=== PATIENT | female | born 1990 | race Caucasian/White ===

== ENCOUNTER 2016-10-06 20:39 | Emergency (ER) | payer OTHER ==
--- NOTE | 2016-10-06 21:19 | ER NURSING DOCUMENTATION ---
Nurse's Notes [facility] Name:Crystal Combest Age:26 yrs Sex:Female :1990 Arrival Date:10/06/2016 Time:20:39 Bed1 Private MD: Diagnosis:Rash Presentation: 10/06 20:50 Presenting complaint: Patient states: rash for 3 days to legs, arms, back. c/o itching lb and pain started today. Transition of care: Home. Onset: The symptoms/episode began/occurred 3 day(s) ago. Anaphylaxis evaluation, no signs or symptoms of anaphylaxis were noted. Notified ED Physician of Dr. Patel notified. 20:50 Acuity: DEL 4 lb 20:50 Method Of Arrival: Walk In lb Triage Assessment: 20:54 General: Appears in no apparent distress, Behavior is cooperative, pleasant. Pain: lb Complains of pain in back of neck. Historical: - Allergies: Pertussis Vaccines; - Home Meds: 1. ortho tricyclen - PMHx: None; - PSHx: Tonsillectomy; SHOULDER SURGERY; eye; - Tetanus: < 10 years. - Ebola Screening: : Patient denies exposure to infectious person. Patient denies travel to an Ebola-affected area in the 21 days before illness onset. . - Immunization history: Flu Vaccine < 1 year. - Social history: Smoking status: Patient states was never smoker of tobacco. Patient uses alcohol but reports only rare drinking. Screenin:55 Infectious Disease Risk None. Abuse screen: Denies threats or abuse. Denies injuries lb from another. Nutritional screening: No deficits noted. Assessment: 20:55 See Triage Assessment done by same RN. Respiratory: Airway is patent Trachea midline lb Respiratory effort is even, unlabored, Breath sounds are clear bilaterally. Vital Signs: 20:54 BP 118 / 72; Pulse 98; Resp 16; Temp 98.2(O); Pulse Ox 97% on R/A; Weight 68.04 kg; lb Height 5 ft. 4 in. (162.56 cm); Pain 3/10; 20:54 Body Mass Index 25.75 (68.04 kg, 162.56 cm) lb ED Course: 20:41 Patient arrived in ED. em3 20:50 Dominga Delgadillo is Primary Nurse. lb 20:52 Triage completed. lb 20:55 Valuables Remains with patient. lb 21:09 Pastor Patel MD is Attending Physician. cd Administered Medications: No medications were administered Outcome: 21: Discharge ordered by . maty 21:18 Discharged to home ambulatory. lb 21:18 Condition: good 21:18 Discharge Assessment: Patient awake, alert and oriented x 3. No cognitive and/or functional deficits noted. Patient verbalized understanding of disposition instructions. 21:18 Instructed on discharge instructions, follow up and referral plans. 21:18 Patient left the ED. lb 10/07 08:33 Discharge F/U Call: Spoke with: patient. Did your discharge instructions answer all lp of your questions? yes Have you made a f/u appointment? No. Reason for no f/u appt: waiting to get back home. Lives in [facility] Signatures: Radha Dumont RN RN Pastor Patel MD MD cd Meiklejohn, Eric 3 Dominga Delgadillo
--- NOTE | 2016-10-06 21:19 | ER PHYSICIAN DOCUMENTATION ---
Physician Documentation [facility] Name:Crystal Royal Age:26 yrs Sex:Female :1990 Arrival Date:10/06/2016 Time:20:39 Bed1 Private MD: Pastor Johnson Disposition: 10/06/16 21:09 Discharged to Home/Self Care. Impression: Rash. - Condition is Good. - Discharge Instructions: Atopic Dermatitides - DERMATITIS, Non-Specific. - Medical Reconciliation form form. - Follow up: Private Physician; When: 7 - 10 days; Reason: Recheck today's complaints, Continuance of care. - Problem is an acute exacerbation. - Symptoms are unchanged. - Notes: Use Benadryl 25mg by mouth every 6 hours as needed for itching Use Topical Hydrocortisone Cream twice a day. Change bras to a non-clasp bra.... Historical: - Allergies: Pertussis Vaccines; - Home Meds: 1. ortho tricyclen - PMHx: None; - PSHx: Tonsillectomy; SHOULDER SURGERY; eye; - Tetanus: < 10 years. - Ebola Screening: : Patient denies exposure to infectious person. Patient denies travel to an Ebola-affected area in the 21 days before illness onset. . - Immunization history: Flu Vaccine < 1 year. - Social history: Smoking status: Patient states was never smoker of tobacco. Patient uses alcohol but reports only rare drinking. Vital Signs: 10/06 20:54 BP 118 / 72; Pulse 98; Resp 16; Temp 98.2(O); Pulse Ox 97% on R/A; Weight 68.04 kg; lb Height 5 ft. 4 in. (162.56 cm); Pain 3/10; 20:54 Body Mass Index 25.75 (68.04 kg, 162.56 cm) lb MDM: 21:09 Patient medically screened. cd Dispensed Medications: No medications were administered Signatures: Pastor Patel MD MD cd Bollock, Lynda lb
== END 2016-10-06 21:19 | disposition home or self-care (01) ==
LOC: ER 20:39
DX: R21 Rash and other nonspecific skin eruption (principal)
CPT/HCPCS: 99281